=== PATIENT | female | born 2005 | race Caucasian/White ===

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

== ENCOUNTER 2023-04-01 18:33 | Emergency (ER) | payer OTHER, SELFPAY ==
--- NOTE | ~2023-04-01 | CT_ITS ---
EXAMINATION: CT abdomen pelvis wo con DATE: 04/01/2023 19:35 INDICATION: Constipation. Abdominal pain TECHNIQUE: Computed tomography (CT) of the abdomen and pelvis was performed without intravenous contr ast. The dose-length product was 257.51 mGy-cm. Automated exposure control and iterative reconstructi on technique were employed. COMPARISON: CT dated 11/26/2021. FINDINGS: Lung bases are unremarkable. Heart size normal. No significant pleural or pericardial effus ion. The liver, spleen, pancreas, adrenal glands and right kidney are unremarkable. There are punctat e 2 mm nonobstructing left renal stones. No ureteral stones or hydronephrosis. Moderate colonic fecal loading. No obstruction. No free air or free fluid. No significant vascular abnormality. Gallbladder is present. No acute osseous abnormality. IMPRESSION: 1. No acute abdominal abnormality. 2: Nonobstructing left nephrolithiasis. Reviewed, dictated and finalized at location A.
[2023-04-01 18:41] VITALS: BP 122/77; PULSE 101; RESP 16; TEMP 36.5; O2SAT 100
[2023-04-01 18:56] LABS: Basophils Absolute Auto 0.06 K/mm3 (0.00-0.10); Eosinophils Absolute Auto 0.12 K/mm3 (0.02-0.50); Hematocrit 38.6 % (35.0-49.0); Immature Granulocyte Absolute 0.01 K/mm3 (0.00-0.00); Immature Granulocyte Percent A 0.2 % (0.0-0.0); Lymphocytes Absolute Auto 1.84 K/mm3 (1.10-4.50); Lymphocytes Percent Auto 31.4 % (18.0-42.0); Mean Corpuscular HGB Conc 33.7 g/dL (32.0-36.0); Mean Corpuscular Volume 88.9 fL (78.0-102.0); Mean Platelet Volume 9.4 fl (9.2-11.8); Monocytes Absolute Auto 0.42 K/mm3 (0.10-0.90); Monocytes Percent Auto 7.2 % (2.0-11.0); Neutrophils Absolute Auto 3.4 K/mm3 (1.7-7.2); Neutrophils Percent Auto 58.2 % (50.0-70.0); Platelet Count Result 232 K/mm3 (150-420); Red Blood Count 4.34 M/mm3 (4.20-5.40); Red Cell Distribution Width 12.4 % (11.6-14.4); White Blood Count 5.9 K/mm3 (4.8-10.8)
--- NOTE | 2023-04-01 18:56 | PC.NURSE ---
On 04/01/23, the student, [von crow ], provided care and completed [facility] documentation on this patient. I have reviewed the student's documentation and agree with the findings.
[2023-04-01] MEDS: SODIUM CHLORIDE 0.9% IV 1,000 ML 999 ML IV CONT (19:05)
[2023-04-01 19:12] LABS: Alanine Aminotransferase 20 U/L (14-59); Albumin Level 3.9 g/dL (3.4-5.0); Alkaline Phosphatase 59 U/L (50-130); Anion Gap 10 mmol/L (8-16); Aspartate Amino Transferase < 10 U/L (15-37); Bilirubin,Total 0.4 mg/dL (0.00-1.00); Blood Urea Nitrogen 11 mg/dL (7-18); Calcium 9.1 mg/dL (8.5-10.1); Carbon Dioxide 25 mmol/L (21-32); Chloride 103 mmol/L (98-108); Estimated CRCL calculation 114 ml/min; Estimated Glomerular Filt Rate > 60; Glucose 105 mg/dL (70-99); Lipase 39 U/L (16-77); Osmolality Calculated 285 mOsm/kg (285-295); Potassium 3.7 mmol/L (3.5-5.1); Sodium 138 mmol/L (136-145); Total Protein 6.8 g/dL (6.4-8.2)
[2023-04-01 19:24] LABS: Pregnancy On Board Control Positive; Urine Pregnancy Test Negative
--- NOTE | 2023-04-01 19:59 | ED.ABDPAIN ---
HPI - Abdominal Pain General Chief Complaint: Abdominal Pain Stated Complaint: constipation Time Seen by Provider: 04/01/23 18:35 Source: patient and family Mode of arrival: ambulatory Limitations: no limitations History of Present Illness HPI narrative: this is a 17-year-old female who presents with some crampy abdominal pain has history of constipation and has had numerous workups with her primary and with the GI for chronic constipation, has had episodes of constipation where she had obstruction and was hospitalized in the past. Currently has been having constipation for the last month has tried numerous preparations including Linzess, magnesium citrate which she has at home. Currently no nausea or vomiting no diarrhea, there is no chest pain no shortness of breath no fever chills. MD elicited complaint: abdominal pain Pertinent past history: constipation Onset (ago): month(s) Pain Consistency: intermittent Location: diffuse Severity: moderate Quality: aching Radiation: none Migration to: no migration Exacerbating factors: eating Relieving factors: nothing Related Data Home Medications Medication Instructions Recorded Confirmed No Home Medications 05/06/22 04/01/23 Allergies Allergy/AdvReac Type Severity Reaction Status Date / Time No Known Allergies Allergy Verified 04/01/23 18:53 Review of Systems Review of Systems: All systems reviewed & are unremarkable except as noted in HPI and below PMFSH Past Medical History Medical History Chronic constipation Exam Const: General: healthy appearing Nutritional Appearance: well nourished Orientation/consciousness: patient oriented x3 Limitations: no limitations Neck: Neck: normal visual inspection, no lymphadenopathy and no meningeal signs Chest: Chest palpation & inspection: normal inspection of the chest Resp: Effort & Inspection: normal respiratory effort Auscultation: clear to auscultation bilaterally Cardio: Rate: regular rate Rhythm: regular rhythm GI: GI Palp: Yes Soft to palpation and Yes Tenderness to palpation present (GI) Auscultation: normal bowel sounds : General: Yes bladder normal to palpation Skin: General skin exam: normal color Rashes: no rashes Wounds: no wounds Neuro: General: patient oriented x3 and moves all extremities Extrem: General: normal to inspection and no clubbing, cyanosis or edema Psych: Mental Status: mental status grossly normal Course Course Emergency Course: patient received IV fluids, labs performed and reviewed and no significant abnormalities, patient had a CT scan performed which showed moderate fecal loading, advised to take her current med preparations for constipation and to follow up with her primary for possible GI referral. Vital Signs Vital signs: Vital Signs Temperature 36.5 C 04/01/23 18:41 Pulse Rate 101 H 04/01/23 18:41 Respiratory Rate 16 04/01/23 18:41 Blood Pressure 122/77 04/01/23 18:41 Pulse Oximetry 100 04/01/23 18:41 Oxygen Delivery Room Air 04/01/23 18:41 Temperature 36.5 C 04/01/23 18:41 Pulse Rate 101 H 04/01/23 18:41 Respiratory Rate 16 04/01/23 18:41 Blood Pressure 122/77 04/01/23 18:41 Pulse Oximetry 100 04/01/23 18:41 Oxygen Delivery Room Air 04/01/23 18:41 MDM - Abdominal Pain Lab Data 04/01/23 18:53 04/01/23 18:53 Labs: Lab Results 04/01/23 04/01/23 Range/Units 18:36 18:53 WBC 5.9 (4.8-10.8) K/mm3 RBC 4.34 (4.20-5.40) M/mm3 Hgb 13.0 (12.0-15.0) g/dL Hct 38.6 (35.0-49.0) % MCV 88.9 (78.0-102.0) fL MCH 30.0 (27.0-31.0) pg MCHC 33.7 (32.0-36.0) g/dL RDW 12.4 (11.6-14.4) % Plt Count 232 (150-420) K/mm3 MPV 9.4 (9.2-11.8) fl Immature Gran % (Auto) 0.2 H (0.0-0.0) % Neut % (Auto) 58.2 (50.0-70.0) % Lymph % (Auto) 31.4 (18.0-42.0) % [place] % (Auto) 7.2 (2.0-11.0) %
[2023-04-01 20:34] VITALS: BP 126/78; PULSE 92; RESP 16; O2SAT 98
== END 2023-04-01 20:33 | disposition home or self-care (01) ==
PROVIDERS: Emergency Provider Emergency Medicine; PCP Internal Medicine
DX: K59.01 Slow transit constipation (principal)
CPT/HCPCS: 36415; 74176; 80053; 81025; 83690; 85025; 96360; 99284; J7030

== ENCOUNTER 2023-04-19 12:30 | Outpatient (RCR) | payer OTHER, SELFPAY ==
--- NOTE | 2023-02-24 11:07 | OPREHPOC ---
Outpatient Therapy Plan of Care This is a Multidisciplinary Plan of Care that may contain components documented by all disciplines (PT, OT, and ST.) PT Problem 1 PT Problem #1 Knowledge Deficit PT Goal 1 Goal 1. Patient will perform independent HEP Target Visit 5 PT Problem 2 PT Problem #2 Pain PT Goal 1 Goal 1. Patient will report abdominal pain no higher than 4/10 2. No pain with pelvic exam Target Visit 5 PT Problem 3 PT Problem #3 Impaired Functional ADLs PT Goal 1 Goal 1. Patient will report no limitation with work or ADL's due to pain 2. Patient will increase frequency of BM to at least 3 per week Target Visit 5
--- NOTE | 2023-02-24 11:07 | PTOPEVAL1 ---
Assessment and note entered by Corinna Paiz DPT Evaluation Information Assessment Status Evaluation Subjective Information Pt reports difficulty having a BM without taking a lot of laxatives . BM 2 times a month. Had some constipation for awhile but worsened a few years ago. Was hospitalized about a year ago for ulcers and I was really close to a bowel obstruction . Urinates 10 times a day, 1-2 times at night. Denies pain with urination. Can hold urge 10-15 minutes. Denies urine leakage. BM are painful, mostly abdominal pain. Highest pain 6-7/10 and lowest 0/10. Pain with intercourse some of the time. Pt has never been . Has been diagnosed with IBS. Reports no other [employer] issues but did not start menstrual cycles until 16 from malnutrition . Patient goal: increase frequency of BM. Difficulty standing up straight when she has pain, has missed work for pain at times. Also may have difficulty cooking and cleaning if she is having pain as well. Diet: coffee every morning which does not increase frequency of stool, water the rest of the day. Eats breakfast in the morning, sometimes skips lunch and then eats dinner. Does not snack throughout the day. Does not eat meat. Unsure how much fiber she eats a day. Returns to [place] in March. Reported Pain Level Pain Score 0: Self Report Assessment PT Clinical Summary The patient is presenting to skilled therapy with a history of abdominal pain and significant constipation as well as pelvic pain. She presents with increased pelvic floor muscle tone and pain with palpation which are contributing to her pain and difficulty with BM and doing other activities including working. She will benefit from skilled therapy to address her pain and constipation in order to perform all normal activities without limitation. Plan of Care Interventions Manual Therapy,Neuro Re-education,Patient/ Caregiver Education,Therapeutic Activities, Therapeutic Exercise PT Services Indicated Yes Treatment Frequency and 1 time a week for 4 visits Duration
--- NOTE | 2023-03-15 14:25 | PCPTNOTE ---
Patient called to cancel appointment on 03/15/23.
--- NOTE | 2023-03-22 15:17 | OPREHPOC ---
Outpatient Therapy Plan of Care This is a Multidisciplinary Plan of Care that may contain components documented by all disciplines (PT, OT, and ST.) PT Problem 1 PT Problem #1 Knowledge Deficit PT Goal 1 Goal 1. Patient will perform independent HEP Target Visit 5 Progress Partially Met PT Problem 2 PT Problem #2 Pain PT Goal 1 Goal 1. Patient will report abdominal pain no higher than 4/10 2. No pain with pelvic exam Target Visit 5 Progress Not Met PT Problem 3 PT Problem #3 Impaired Functional ADLs PT Goal 1 Goal 1. Patient will report no limitation with work or ADL's due to pain 2. Patient will increase frequency of BM to at least 3 per week Target Visit 5 Progress Not Met
--- NOTE | 2023-03-22 15:18 | PTOPPROG ---
Assessment and note entered by Corinna Paiz DPT Evaluation Information Assessment Status Progress Subjective Information Highest pain recently 7/10 and lowest 0/10. Still going up to 3 weeks in between BM and having to take laxatives. Does feel that bowel massage helps her at least feel like my stomach is moving . Assessment PT Clinical Summary The patient has made minimal progress in the last month. She reports continued constipation up to 3 weeks in between BM and demonstrates continued pain with pelvic exam and increased (but improved) pelvic floor muscle tone. Due her progress and the chronic and severe nature of her symptoms, plan to continue therapy to decrease pain and constipation. Plan of Care Interventions Electrical Stimulation,Hot Pack/Cold Pack,Manual Therapy,Neuro Re-education,Patient/Caregiver Education,Therapeutic Activities,Therapeutic Exercise PT Services Indicated Yes Treatment Frequency and 1 time a week for 4 weeks Duration These treatments will address the objective and functional deficits as defined above. The patient will be advanced safely and appropriately in order for the patient to progress towards his/her prior level of function. Additional exercises will be introduced and as well as a comprehensive home exercise program upon discharge, if needed, ?to ensure carryover of functional gains achieved in the clinic. This treatment plan has been reviewed and agreement upon by the patient.
--- NOTE | 2023-04-05 13:37 | PCPTNOTE ---
Patient called to cancel appointment on 04/05/23.
--- NOTE | 2023-04-12 12:57 | PCPTNOTE ---
Patient called to cancel appointment on 04/12/23- has an appointment with gastro on Wednesday and will call back if she is to continue therapy.
--- NOTE | 2023-04-19 13:03 | OPREHPOC ---
Outpatient Therapy Plan of Care This is a Multidisciplinary Plan of Care that may contain components documented by all disciplines (PT, OT, and ST.) PT Problem 1 PT Problem #1 Knowledge Deficit PT Goal 1 Goal 1. Patient will perform independent HEP Target Visit 5 Progress Met PT Problem 2 PT Problem #2 Pain PT Goal 1 Goal 1. Patient will report abdominal pain no higher than 4/10 2. No pain with pelvic exam Target Visit 5 Progress Partially Met Comment 1. no change 2. met PT Problem 3 PT Problem #3 Impaired Functional ADLs PT Goal 1 Goal 1. Patient will report no limitation with work or ADL's due to pain 2. Patient will increase frequency of BM to at least 3 per week Target Visit 5 Progress Not Met
--- NOTE | 2023-04-19 13:03 | PTOPDC ---
Assessment and note entered by Corinna Paiz DPT Evaluation Information Assessment Status Discharge Subjective Information Pt reports she has had to cancel her last 2 appointments due to inability to have a BM and significant pain. Went to ER due to pain and was given meds to have a BM. Saw referring MD a few days ago. Will be getting a referral to see a surgeon but is not scheduled yet. Highest abdominal pain 8/10 and lowest 0/10. Highest pelvic pain with intercourse 1-2/10 and lowest 0/ 10. Does not feel therapy has helped so far with constipation but maybe some improvements with pelvic pain. Reported Pain Level Pain Score 0: Self Report Assessment PT Clinical Summary The patient has made limited progress in therapy so far. She reports decreased pelvic pain/pain with intercourse and reports no pain with pelvic floor palpation. She has still had significant abdominal pain and has gone extensive amounts of time between BM requiring an ER visit recently. Due to her continued pain and constipation, plan to hold therapy at this time to allow patient to follow up with a surgeon. She has been educated to continue monitoring overall water and fiber intake, using colon massage, and toileting techniques. May resume therapy as needed after following up with the new physician. Plan of Care PT Services Indicated No
== END 2023-04-19 13:51 | disposition home or self-care (01) ==
LOC: ANHGOSHPT 12:30
PROVIDERS: PCP Internal Medicine
DX: R10.9 Unspecified abdominal pain (principal)
CPT/HCPCS: 97014; 97110; 97140; 97162; 97530; G0283

== ENCOUNTER 2023-06-12 13:10 | Emergency (ER) | payer OTHER, SELFPAY ==
--- NOTE | ~2023-06-12 | CT_ITS ---
CT of the Abdomen and Pelvis: Indication: Abdominal pain Technique: 2.5 mm axial scans were obtained through the abdomen and pelvis following intravenous adm inistration of 100 cc of Omnipaque 350. Dose reduction technique was used on this scan by utilizing a utomated exposure control and iterative reconstruction technique. The dose-length product (DLP) was 2 87.72 mGy-cm. COMPARISON: 04/01/2023 Findings: Scans through the lung bases are unremarkable. The liver, spleen, pancreas, gallbladder, adrenals and right kidney are within normal limits. Punctat e nonobstructing left renal stone noted. No evidence of aortic aneurysm. No lymphadenopathy. No bowel obstruction or bowel wall thickening. There is no evidence to suggest acute appendicitis. Images through the pelvis were performed. Urinary bladder unremarkable. No adnexal mass seen. Trace p elvic free fluid noted. Impression: Punctate nonobstructing left renal stone. Trace pelvic free fluid, nonspecific. 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 Trace pelvic free fluid, nonspecific.
[2023-06-12 13:10] VITALS: BP 117/80; PULSE 92; RESP 15; TEMP 36.2; O2SAT 100
[2023-06-12 13:28] LABS: Pregnancy On Board Control Positive; Urine Pregnancy Test Negative
[2023-06-12] MEDS: ONDANSETRON INJ 4 MG/2 ML VIAL IV PUSH (13:35)
[2023-06-12 13:55] LABS: Alanine Aminotransferase 25 U/L (14-59); Albumin Level 4.1 g/dL (3.4-5.0); Alkaline Phosphatase 55 U/L (50-130); Anion Gap 9 mmol/L (8-16); Aspartate Amino Transferase 12 U/L (15-37); Bilirubin,Total 0.7 mg/dL (0.00-1.00); Blood Urea Nitrogen 9 mg/dL (7-18); Calcium 8.7 mg/dL (8.5-10.1); Carbon Dioxide 26 mmol/L (21-32); Chloride 102 mmol/L (98-108); Estimated CRCL calculation 104 ml/min; Estimated Glomerular Filt Rate > 60; Glucose 98 mg/dL (70-99); Osmolality Calculated 282 mOsm/kg (285-295); Sodium 137 mmol/L (136-145); Total Protein 6.6 g/dL (6.4-8.2)
--- NOTE | 2023-06-12 14:48 | ED.ABDPAIN ---
HPI - Abdominal Pain General Chief Complaint: Abdominal Pain Stated Complaint: abdominal pain Time Seen by Provider: 06/12/23 13:21 Source: patient Mode of arrival: ambulatory Limitations: no limitations History of Present Illness HPI narrative: this is a 17-year-old female with a history of slow transit through her bowels and was told by her surgeon to hold her medication for constipation, called her surgeon today and stating that she has been having some abdominal pain with some nausea with no distention of her abdomen no fever chills no chest pain no shortness of breath. MD elicited complaint: abdominal pain Pertinent past history: constipation Onset (ago): day(s) Severity: mild Quality: aching Related Data Home Medications Medication Instructions Recorded Confirmed ondansetron HCl 4 mg tablet 4 mg PO TID PRN Nausea 06/12/23 06/12/23 Allergies Allergy/AdvReac Type Severity Reaction Status Date / Time No Known Allergies Allergy Verified 06/12/23 13:15 Review of Systems Review of Systems: All systems reviewed & are unremarkable except as noted in HPI and below PMFSH Past Medical History Medical History Chronic constipation Exam Const: General: healthy appearing Nutritional Appearance: well nourished Orientation/consciousness: patient oriented x3 Limitations: no limitations Resp: Effort & Inspection: normal respiratory effort Auscultation: clear to auscultation bilaterally Cardio: Rate: regular rate Rhythm: regular rhythm GI: GI Palp: Yes Soft to palpation and Yes Tenderness to palpation present (GI) Auscultation: normal bowel sounds : General: Yes bladder normal to palpation Back/Spine/Pelvis: Back: no CVA tenderness Skin: General skin exam: normal color Course Course Emergency Course: Patient received a CT scan with contrast which shows no acute obstruction no perforations. Patient had IV in place and was given IV Zofran for nausea. Vital Signs Vital signs: Vital Signs Temperature 36.2 C L 06/12/23 13:10 Pulse Rate 92 06/12/23 13:10 Respiratory Rate 15 06/12/23 13:10 Blood Pressure 117/80 06/12/23 13:10 Pulse Oximetry 100 06/12/23 13:10 Oxygen Delivery Room Air 06/12/23 13:10 Temperature 36.2 C L 06/12/23 13:10 Pulse Rate 92 06/12/23 13:10 Respiratory Rate 15 06/12/23 13:10 Blood Pressure 117/80 06/12/23 13:10 Pulse Oximetry 100 06/12/23 13:10 Oxygen Delivery Room Air 06/12/23 13:10 MDM - Abdominal Pain Lab Data 06/12/23 13:35 Labs: Lab Results 06/12/23 06/12/23 Range/Units 13:21 13:35 Sodium 137 (136-145) mmol/L Potassium 4.0 (3.5-5.1) mmol/L Chloride 102 (98-108) mmol/L Carbon Dioxide 26 (21-32) mmol/L Anion Gap 9 (8-16) mmol/L BUN 9 (7-18) mg/dL Creatinine 0.83 (0.55-1.02) mg/dL Estim Creat Clear Calc 104 ml/min Estimated GFR > 60 (59 - ) Glucose 98 (70-99) mg/dL Calculated Osmolality 282 L (285-295) mOsm/kg Calcium 8.7 (8.5-10.1) mg/dL Total Bilirubin 0.7 (0.00-1.00) mg/dL AST 12 L (15-37) U/L ALT 25 (14-59) U/L Alkaline Phosphatase 55 (50-130) U/L Total Protein 6.6 (6.4-8.2) g/dL Albumin 4.1 (3.4-5.0) g/dL Urine Test Negative Imaging Data Radiologist's impression: ITS Impressions Abdomen/Pelvis CT 06/12/23 14:26 Impression: Punctate nonobstructing left renal stone. Trace pelvic free fluid, nonspecific. Critical Care Time Critical Care Time Critical Care Time: No Discharge Plan Discharge Clinical Impression: Chronic constipation Patient Disposition: Home, Self-Care Condition: Stable Instructions: Antibiotic Form, Constipation (ED) Additional Instructions: take medicine as prescribed and follow-up with surgeon as scheduled. Prescriptions: New ondansetron 4 mg tablet,disintegrating 4 mg PO Q6
[2023-06-12 15:00] VITALS: BP 115/75; PULSE 75; RESP 14; TEMP 37.4; O2SAT 100
== END 2023-06-12 15:03 | disposition home or self-care (01) ==
PROVIDERS: Emergency Provider Emergency Medicine; PCP Internal Medicine
DX: K59.09 Other constipation (principal)
CPT/HCPCS: 36415; 74177; 80053; 81025; 96374; 99284; J2405; Q9967

== ENCOUNTER 2023-10-22 11:24 | Outpatient (CLI) | payer OTHER, SELFPAY ==
[2023-10-22 11:58] LABS: Basophils Absolute Auto 0.05 K/mm3 (0.00-0.10); Basophils Percent Auto 1.1 % (0.0-1.0); Eosinophils Absolute Auto 0.09 K/mm3 (0.02-0.50); Eosinophils Percent Auto 2.1 % (1.0-6.0); Hematocrit 41.4 % (35.0-49.0); Hemoglobin 13.7 g/dL (12.0-15.0); Immature Granulocyte Absolute 0.01 K/mm3 (0.00-0.00); Immature Granulocyte Percent A 0.2 % (0.0-0.0); Lymphocytes Absolute Auto 1.15 K/mm3 (1.10-4.50); Lymphocytes Percent Auto 26.4 % (18.0-42.0); Mean Corpuscular HGB Conc 33.1 g/dL (32-36); Mean Corpuscular Hemoglobin 30.1 pg (27.0-31.0); Mean Platelet Volume 9.2 fl (9.2-11.8); Monocytes Absolute Auto 0.25 K/mm3 (0.10-0.90); Monocytes Percent Auto 5.7 % (2.0-11.0); Neutrophils Percent Auto 64.5 % (50.0-70.0); Platelet Count Result 197 K/mm3 (150-420); Red Blood Count 4.55 M/mm3 (4.20-5.40); Red Cell Distribution Width 12.5 % (11.6-14.4); White Blood Count 4.4 K/mm3 (4.8-10.8)
[2023-10-22 12:03] LABS: Appearance Urine Clear (Clear); Bilirubin Urine Negative (Negative); Blood Urine Negative (Negative); Color Urine Light Yellow (Yellow); Glucose Urine UA Negative (Negative); Ketones Urine Negative (Negative); Leukocyte Esterase Ur Negative LEU/UL (Negative); Nitrate Urine Negative (Negative); Protein Urine Negative (Negative); Urobilinogen Urine 0.2 mg/dL (0.2-1.0); pH Urine 6.5 (5.0-8.0)
[2023-10-22 12:11] LABS: Add Urine Microscopic? NO
[2023-10-22 12:42] LABS: Alanine Aminotransferase 20 U/L (14-59); Albumin Level 4.1 g/dL (3.4-5.0); Alkaline Phosphatase 55 U/L (46-116); Anion Gap 6 mmol/L (4-12); Aspartate Amino Transferase 12 U/L (15-37); Bilirubin,Total 0.7 mg/dL (0.00-1.00); Blood Urea Nitrogen 7 mg/dL (7-18); Calcium 9.2 mg/dL (8.5-10.1); Carbon Dioxide 29 mmol/L (21-32); Chloride 104 mmol/L (98-108); Estimated Glomerular Filt Rate > 60; Ferritin 32 ng/mL (8-252); Glucose 82 mg/dL (70-99); Iron 91 ug/dL (50-170); Osmolality Calculated 285 mOsm/kg (285-295); Percent Iron Saturation 28 % (12-57); Potassium 4.3 mmol/L (3.5-5.1); Sodium 139 mmol/L (136-145); Thyroid Stimulating Hormone 0.86 uIU/mL (0.36-3.74); Total Protein 6.9 g/dL (6.4-8.2); Vitamin B12 1092 pg/mL (193-986)
[2023-10-24 06:03] LABS: Vitamin D 25 Hydroxy 30 ng/mL (30-100)
== END 2023-10-22 11:25 | disposition home or self-care (01) ==
PROVIDERS: PCP Internal Medicine; Visit Provider Internal Medicine
DX: Z00.01 Encounter for general adult medical examination with abnormal findings (principal); D50.9 Iron deficiency anemia, unspecified; N39.0 Urinary tract infection, site not specified; E55.9 Vitamin D deficiency, unspecified
CPT/HCPCS: 36415; 80053; 81003; 82306; 82607; 82728; 83540; 83550; 84443; 85025

== ENCOUNTER 2024-02-21 12:49 | Emergency (ER) | payer OTHER, SELFPAY ==
--- NOTE | ~2024-02-21 | CT_ITS ---
CT of the Abdomen and Pelvis: Indication: Abdominal pain Technique: 2.5 mm axial scans were obtained through the abdomen and pelvis following intravenous adm inistration of 100 cc of Omnipaque 350. Dose reduction technique was used on this scan by utilizing a utomated exposure control and iterative reconstruction technique. The dose-length product (DLP) was 2 56.57 mGy-cm. COMPARISON: 06/12/2023 Findings: Scans through the lung bases are unremarkable. The liver, spleen, pancreas, gallbladder, adrenals and right kidney are within normal limits. 3 mm no nobstructing left renal stone present. No evidence of aortic aneurysm. No lymphadenopathy. Question mild wall thickening of multiple small bowel loops and possibly large bowel. Possible mild e ngorgement of the vasa recta. No bowel obstruction evident. Images through the pelvis were performed. Urinary bladder unremarkable. No adnexal mass seen. Small a mount of pelvic ascites present. Impression: Questionable nonspecific enterocolitis. 3 mm nonobstructing left renal stone. Reviewed, dictated and finalized at [facility]. Impression: Questionable nonspecific enterocolitis. 3 mm nonobstructing left renal stone.
[2024-02-21 12:58] VITALS: BP 107/79; PULSE 59; RESP 18; TEMP 36.6; O2SAT 97
--- NOTE | 2024-02-21 13:08 | ED.GENADULT ---
HPI - General Adult General Chief complaint: Nausea/Vomiting/Diarrhea Stated complaint: ilestomy problems Source: patient Mode of arrival: ambulatory Limitations: no limitations History of Present Illness HPI narrative: patient drove herself to the emergency room complaining of general weakness, tiredness , nausea and frequent emptying her ileostomy bag up to 10 times a day instead of 3 times a day over the last few days. Patient report that the stool in the bag is liquidy and bile like. Patient had similar symptoms 1 month ago , went to [facility] and discharged on Bentyl and Compazine. Patient reported some liquid coming out of the anus maximum twice over the last 24 hours which never happened before. 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 Related Data Home Medications Medication Instructions Recorded Confirmed dicyclomine 20 mg tablet 20 mg PO BID 02/21/24 02/21/24 prochlorperazine maleate 10 mg 10 mg PO BID 02/21/24 02/21/24 tablet (Compazine) Allergies Allergy/AdvReac Type Severity Reaction Status Date / Time No Known Allergies Allergy Verified 06/12/23 13:15 Review of Systems Review of Systems: All systems reviewed & are unremarkable except as noted in HPI and below PMFSH Past Medical History Medical History Chronic constipation Exam Narrative: General appearance: Well-developed, well-nourished Skin: Normal color Head: Normocephalic, nontraumatic Eyes: Clear conjunctiva ENT: Oropharynx normal, ears normal, nose normal Neck: Supple, nontender Chest and respiratory: Airway patent, no respiratory distress, no accessory muscle use Heart: Regular rate/rhythm Abdomen: Soft, slight tenderness around the ileostomy bag, no organomegaly, quiet bowel sounds Vascular: Normal peripheral pulses, normal capillary refill. 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, no gross motor deficit Course Vital Signs Vital signs: Vital Signs Temperature 36.6 C 02/21/24 12:58 Pulse Rate 59 L 02/21/24 12:58 Respiratory Rate 18 02/21/24 12:58 Blood Pressure 107/79 02/21/24 12:58 Pulse Oximetry 97 02/21/24 12:58 Oxygen Delivery Room Air 02/21/24 12:58 Temperature 36.6 C 02/21/24 12:58 Pulse Rate 59 L 02/21/24 12:58 Respiratory Rate 18 02/21/24 12:58 Blood Pressure 107/79 02/21/24 12:58 Pulse Oximetry 97 02/21/24 12:58 Oxygen Delivery Room Air 02/21/24 12:58 Medical Decision Making MDM Narrative Medical decision making narrative: patient presents with frequent emitting the ileostomy bag, weakness, headache, nausea Vital signs are stable Physical exam showed slight tenderness around the ileostomy bag, liquid yellowish stool in the bag Differential diagnosis include dehydration, electrolyte imbalance, diarrhea, ileitis or colitis Blood workup today showed no acute abnormalities CT abdomen and pelvis with IV contrast showed possible enterocolitis Patient received 1 L of normal saline IV, 4 mg Zofran IV with significant improvement. Patient surgeon at [facility]/Dr. Magallanes was notified through his nurse, did not call back, 1 hour later his office was closed, we have no access to him at this time. Patient was advised to call him in the morning for possible further management. the pt was discharged to home.the pt,s condition upon discharge was fair,education was provided to the pt in reference to the final impression,discharge study results,treatment,prognosis and need for follow up . Differential Diagnosis Differe
[2024-02-21 13:23] LABS: Pregnancy On Board Control Positive; Urine Pregnancy Test Negative
[2024-02-21 13:28] LABS: Hematocrit 43.4 % (35.0-49.0); Hemoglobin 14.6 g/dL (12.0-15.0); Mean Corpuscular HGB Conc 33.6 g/dL (32-36); Mean Corpuscular Volume 89.1 fL (78.0-102.0); Platelet Count Result 213 K/mm3 (150-420); Red Blood Count 4.87 M/mm3 (4.20-5.40); Red Cell Distribution Width 12.2 % (11.6-14.4); White Blood Count 5.6 K/mm3 (4.8-10.8)
[2024-02-21 13:29] LABS: Basophils Absolute Auto 0.06 K/mm3 (0.00-0.10); Basophils Percent Auto 1.1 % (0.0-1.0); Eosinophils Absolute Auto 0.32 K/mm3 (0.02-0.50); Eosinophils Percent Auto 5.7 % (1.0-6.0); Immature Granulocyte Absolute 0.03 K/mm3 (0.00-0.00); Immature Granulocyte Percent A 0.5 % (0.0-0.0); Lymphocytes Percent Auto 19.7 % (18.0-42.0); Mean Platelet Volume 9.1 fl (9.2-11.8); Monocytes Percent Auto 5.4 % (2.0-11.0); Neutrophils Absolute Auto 3.78 K/mm3 (1.70-7.20); Neutrophils Percent Auto 67.6 % (50.0-70.0)
[2024-02-21] MEDS: SODIUM CHLORIDE 0.9% IV 1,000 ML 999 ML IV CONT (13:31)
[2024-02-21] MEDS: ONDANSETRON INJ 4 MG/2 ML VIAL IV PUSH (13:31)
[2024-02-21 13:44] LABS: Alanine Aminotransferase 20 U/L (14-59); Alkaline Phosphatase 64 U/L (46-116); Anion Gap 10 mmol/L (4-12); Aspartate Amino Transferase 11 U/L (15-37); Bilirubin,Total 0.7 mg/dL (0.00-1.00); Blood Urea Nitrogen 5 mg/dL (7-18); Calcium 9.1 mg/dL (8.5-10.1); Carbon Dioxide 27 mmol/L (21-32); Chloride 102 mmol/L (98-108); Estimated CRCL calculation 85 ml/min; Estimated Glomerular Filt Rate > 60; Glucose 91 mg/dL (70-99); Lipase 31 U/L (16-77); Osmolality Calculated 285 mOsm/kg (285-295); Potassium 3.9 mmol/L (3.5-5.1); Sodium 139 mmol/L (136-145); Total Protein 7.2 g/dL (6.4-8.2)
[2024-02-21 13:56] LABS: Albumin Level 4.2 g/dL (3.4-5.0)
[2024-02-21 16:47] VITALS: BP 114/81; PULSE 86; RESP 18; TEMP 36.6; O2SAT 100
== END 2024-02-21 16:58 | disposition home or self-care (01) ==
PROVIDERS: Emergency Provider Emergency Medicine; PCP Internal Medicine
DX: K52.9 Noninfective gastroenteritis and colitis, unspecified (principal)
CPT/HCPCS: 36415; 74177; 80053; 81025; 83690; 85025; 96361; 96374; 99284; J2405; J7030; Q9967

== ENCOUNTER 2024-10-14 20:13 | Emergency (ER) | payer OTHER, SELFPAY ==
--- NOTE | ~2024-10-14 | CT_ITS ---
CT of the Abdomen and Pelvis: Indication: Abdominal pain Technique: 2.5 mm axial scans were obtained through the abdomen and pelvis following intravenous adm inistration of 100 cc of Omnipaque 350. Dose reduction technique was used on this scan by utilizing a utomated exposure control and iterative reconstruction technique. The dose-length product (DLP) was 2 72.32 mGy-cm. COMPARISON: 02/21/2024 Findings: Scans through the lung bases are unremarkable. There is periportal edema. Liver is otherwise unremarkable. The spleen, pancreas, gallbladder, adrena ls and right kidney are within normal limits. 2 mm nonobstructing left renal stone present. No eviden ce of aortic aneurysm. No lymphadenopathy. No bowel obstruction or bowel wall thickening. Ostomy present.. Images through the pelvis were performed. Urinary bladder unremarkable. 3 cm ovarian cyst present. Sm all amount of pelvic ascites present, with probable tiny amount of hemorrhagic fluid present. Impression: Small amount of pelvic ascites with minimal hemorrhagic fluid, likely related to ruptured ovarian cys t. 3 cm right ovarian cyst present. 2 mm nonobstructing left renal stone. Periportal edema, nonspecific. Reviewed, dictated and finalized at [facility]. Impression: Small amount of pelvic ascites with minimal hemorrhagic fluid, likely related t o ruptured ovarian cyst. 3 cm right ovarian cyst present. 2 mm nonobstructing left renal stone. Periportal edema, nonspecific.
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
[2024-10-14 20:20] VITALS: BP 123/84; PULSE 90; RESP 20; TEMP 36.6; O2SAT 100
--- NOTE | 2024-10-14 20:35 | ED.ABDPAIN ---
HPI - Abdominal Pain General Chief Complaint: Abdominal Pain Stated Complaint: ABDOMINAL PAIN Time Seen by Provider: 10/14/24 20:23 Source: patient Mode of arrival: ambulatory Limitations: no limitations History of Present Illness HPI narrative: 19 years old white female came to the ED complaining of lower abdominal pain bilaterally started 2 days ago l, patient report vaginal spotting for the last couple days, last menstrual cycle was on the 8th of this month. Patient report pain gets worse with sitting. Possible increased frequency of urination. History of ileostomy over 1 year ago at [facility] secondary to immobility of the colon. Patient denies any fever, chills, nausea, vomiting or change of the amount of stool or the consistency in the ileostomy bag. Related Data Home Medications Medication Instructions Recorded Confirmed Last Taken Type dicyclomine 20 mg tablet 20 mg PO BID 02/21/24 02/21/24 Unknown History prochlorperazine maleate 10 mg 10 mg PO BID 02/21/24 02/21/24 Unknown History tablet (Compazine) Allergies Allergy/AdvReac Type Severity Reaction Status Date / Time No Known Allergies Allergy Verified 06/12/23 13:15 Review of Systems Review of Systems: All systems reviewed & are unremarkable except as noted in HPI and below PMFSH Past Medical History Medical History Chronic constipation Exam Narrative: General appearance: Well-developed, well-nourished Skin: Normal color Head: Normocephalic, nontraumatic Eyes: Clear conjunctiva ENT: Oropharynx normal, ears normal, nose normal Neck: Supple, nontender Chest and respiratory: Airway patent, no respiratory distress, no accessory muscle use Heart: Regular rate/rhythm Abdomen: Severe lower abdominal pain bilaterally, positive guarding,, quite bowel sounds Vascular: Normal peripheral pulses, normal capillary refill. Musculoskeletal: Normal range of motion, nontender back Neurologic: Alert and oriented ×3, BREWERY CELLAR WORKER is normal as tested, no gross motor deficit Course Vital Signs Vital signs: Vital Signs Temperature 36.6 C 10/14/24 20:20 Pulse Rate 90 10/14/24 20:20 Respiratory Rate 20 10/14/24 20:20 Blood Pressure 123/84 10/14/24 20:20 Pulse Oximetry 100 10/14/24 20:20 Oxygen Delivery Room Air 10/14/24 20:20 Temperature 36.6 C 10/14/24 20:20 Pulse Rate 72 10/14/24 21:49 Respiratory Rate 18 10/14/24 21:49 Blood Pressure 121/75 10/14/24 21:49 Pulse Oximetry 99 10/14/24 21:49 Oxygen Delivery Room Air 10/14/24 21:49 MDM - Abdominal Pain MDM Narrative Medical decision making narrative: patient presents with lower abdominal pain Vital signs are stable Physical examination consistent with severe tenderness across the lower abdomen bilaterally Differential diagnosis: ileitis, urinary tract infection, , PID Blood workup today includes CBC, CMP, lipase showed NO SIGNIFICANT ABNORMALITIES Urinalysis showed BLOOD IN THE URINE, PATIENT CURRENTLY SPOTTING CT abdomen and pelvis with IV contrast showed HEMORRHAGIC RIGHT OVARIAN CYST MEASURING 32 MM, FREE PELVIC FLUID WITH LAYERING DENSITY SUGGESTING HEMORRHAGIC FLUID FROM RUPTURED HEMORRHAGIC CYST. NO ACTIVE BLEEDING VISUALIZED. DIAGNOSIS RUPTURED CYST, DISCHARGED HOME, FOLLOW-UP WITH OBGYN. TAKE TYLENOL, IBUPROFEN NEEDED Differential Diagnosis Differential diagnosis: Likely other Lab Data 10/14/24 20:35 10/14/24 20:35 Labs: Lab Results 10/14/24 10/14/24 Range/Units 20:33 20:35 WBC 8.9 (4.8-10.8) K/mm3 RBC 4.38 (4.20-5.40) M/mm3 Hgb 12.9 (12.0-15.0) g/dL Hct 39.2 (35.0-49.0) % MCV 89.5 (78.0-102.0) fL MCH 29.5 (27.0-31.0) pg MCHC 32.9 (32-36) g/dL RDW 12.4 (11.6-14.4) % Plt Count 224 (150-420) K/mm3 MPV 9.2 (9.2-11.8) fl Immature Gran % (Auto) 0.2 H (0.0-0.0) % Neut % (Auto) 71.1 H (50.0-70.0) % Lymph % (Auto) 20.3 (18.0-42.0) % Lares % (Auto) 6.4 (2.0-11.0) % Eos % (Auto) 1.2 (1.0-6.0) % Baso % (Auto) 0.8 (0.0-1.0) % Lymph # (Auto) 1.80 (1.10-4.50) K/mm3 Lares # (Auto) 0.57 (0.10-0.90) K/mm3 Eos # (Auto) 0.11 (0.02-0.50) K/mm3 Baso # (Auto) 0.07 (0.00-0.10) K/mm3 Abs Immat Gran (auto) 0.02 H (0.00-0.00) K/mm3 Absolute Neuts (auto) 6.30 (1.70-7.20) K/mm3 Absolute Nucleated RBC 0.00 (0.00-0.00) K/mm3 Nucleated RBC % 0.0 (0-0.0) % Sodium 138 (137-145) mmol/L Potassium 3.7 (3.4-5.0) mmol/L Chloride 109 H (98-107) mmol/L Carbon Dioxide 22 (22-30) mmol/L Anion Gap 7 (4-12) mmol/L BUN 7 (7-17) mg/dL Creatinine 0.70 (0.7-1.0) mg/dL Estim Creat Clear Calc Not Reportable Estimated GFR > 60 (59 - ) Glucose 87 (65-110) mg/dL Calculated Osmolality 283 L (285-295) mOsm/kg Calcium 8.7 (8.4-10.2) mg/dL Total Bilirubin 0.7 (0.2-1.3) mg/dL AST 21 (14-36) U/L ALT 20 (6-35) U/L Alkaline Phosphatase 57 (38-126) U/L Total Protein 6.8 (6.3-8.2) g/dL Albumin 4.3 (3.5-5.1) g/dL Lipase 114 (23-300) U/L Urine Color Yellow (Yellow) Urine Appearance Cloudy A (Clear) Urine pH 6.0 (5.0-8.0) Ur Specific [place] >= 1.030 H (1.010-1.020) Urine Protein 2+ H (Negative) Urine Glucose (UA) Negative (Negative) Urine Ketones Negative (Negative) Ur Blood (Man) 3+ H (Negative) Urine Nitrate Negative (Negative) Urine Bilirubin Negative (Negative) Urine Urobilinogen 0.2 (0.2-1.0) mg/dL Leukocyte Esterase Rfl Trace H (Negative) ALAN/UL Urine RBC 21-50 H (0-2) /hpf Urine WBC 0-3 (0-3) /hpf Ur Squamous Epith Cells Many H (Few) /hpf Amorphous Sediment Moderate H (None) Urine Bacteria 3+ H (None) /hpf Urine Mucus Heavy H /lpf Urine Test Negative Discharge Plan Discharge Clinical Impression: Rupture of cyst of right ovary Patient Disposition: Home Condition: Stable Instructions: Ruptured Ovarian Cyst (ED) Additional Instructions: RETURN IF SYMPTOMS ARE WORSENING , CALL YOUR FAMILY PHYSICIAN /OBGYN FOR APPOINTMENT, TAKE TYLENOL, IBUPROFEN NEEDED FOR ACHES AND PAIN, CONTINUE HOME MEDICATIONS. Patient Language: Tamazight Prescriptions: No Action prochlorperazine maleate [Compazine] 10 mg tablet 10 mg PO BID dicyclomine 20 mg tablet 20 mg PO BID Follow-up/Referrals: Bob Benavides MD [Physician] - 10/16/24 Jesse,Gamal Link MD [Primary Care Provider] -
[2024-10-14] MEDS: ONDANSETRON INJ 4 MG/2 ML VIAL IV PUSH (20:42)
[2024-10-14] MEDS: SODIUM CHLORIDE 0.9% IV 1,000 ML 999 ML IV CONT (20:45)
[2024-10-14 20:46] LABS: Add Urine Microscopic? YES; Bilirubin Urine Negative (Negative); Blood Urine 3+ (Negative); Color Urine Yellow (Yellow); Glucose Urine UA Negative (Negative); Ketones Urine Negative (Negative); Leukocyte Esterase Ur Trace LEU/UL (Negative); Nitrate Urine Negative (Negative); Protein Urine 2+ (Negative); Specific Grav Ur >= 1.030 (1.010-1.020); Urobilinogen Urine 0.2 mg/dL (0.2-1.0)
[2024-10-14 20:46] LABS: Basophils Absolute Auto 0.07 K/mm3 (0.00-0.10); Basophils Percent Auto 0.8 % (0.0-1.0); Eosinophils Absolute Auto 0.11 K/mm3 (0.02-0.50); Eosinophils Percent Auto 1.2 % (1.0-6.0); Hematocrit 39.2 % (35.0-49.0); Hemoglobin 12.9 g/dL (12.0-15.0); Immature Granulocyte Absolute 0.02 K/mm3 (0.00-0.00); Immature Granulocyte Percent A 0.2 % (0.0-0.0); Lymphocytes Percent Auto 20.3 % (18.0-42.0); Mean Corpuscular HGB Conc 32.9 g/dL (32-36); Mean Corpuscular Hemoglobin 29.5 pg (27.0-31.0); Mean Corpuscular Volume 89.5 fL (78.0-102.0); Mean Platelet Volume 9.2 fl (9.2-11.8); Monocytes Absolute Auto 0.57 K/mm3 (0.10-0.90); Monocytes Percent Auto 6.4 % (2.0-11.0); Neutrophils Percent Auto 71.1 % (50.0-70.0); Platelet Count Result 224 K/mm3 (150-420); Red Blood Count 4.38 M/mm3 (4.20-5.40); Red Cell Distribution Width 12.4 % (11.6-14.4); White Blood Count 8.9 K/mm3 (4.8-10.8)
[2024-10-14 20:56] LABS: Appearance Urine Cloudy (Clear); RBC Urine 21-50 /hpf (0-2); Squamous Epithelial Cell Urine Many /hpf (Few); WBC Urine 0-3 /hpf (0-3)
[2024-10-14 20:57] LABS: Amorphous Sediment Urine Moderate; Bacteria Urine 3+ /hpf; Mucus Urine Heavy /lpf
[2024-10-14 20:58] LABS: Pregnancy On Board Control Positive; Urine Pregnancy Test Negative
[2024-10-14 21:21] LABS: Alanine Aminotransferase 20 U/L (6-35); Albumin Level 4.3 g/dL (3.5-5.1); Alkaline Phosphatase 57 U/L (38-126); Anion Gap 7 mmol/L (4-12); Aspartate Amino Transferase 21 U/L (14-36); Bilirubin,Total 0.7 mg/dL (0.2-1.3); Blood Urea Nitrogen 7 mg/dL (7-17); Calcium 8.7 mg/dL (8.4-10.2); Carbon Dioxide 22 mmol/L (22-30); Chloride 109 mmol/L (98-107); Estimated Glomerular Filt Rate > 60; Glucose 87 mg/dL (65-110); Lipase 114 U/L (23-300); Osmolality Calculated 283 mOsm/kg (285-295); Potassium 3.7 mmol/L (3.4-5.0); Sodium 138 mmol/L (137-145); Total Protein 6.8 g/dL (6.3-8.2)
[2024-10-14 21:49] VITALS: BP 121/75; PULSE 72; RESP 18; O2SAT 99
--- NOTE | 2024-10-14 22:28 | PC.NURSE ---
Pt resting in room, informed and updated on waiting for results of CT scan and that images sent to [facility] to be read. Informed pt on wait time and that it will most likely be hours before results are back. Pt denies any worsening pain, resting on her side and ambulates steadily to BR on her own. Pt given warm blanket, lights dimmed, call balderas at side.
--- NOTE | 2024-10-14 23:45 | PC.NURSE ---
Pt sleeping, resting comfortably, still awaiting CT scan results.
[2024-10-15 00:53] VITALS: BP 119/71; PULSE 70; RESP 20; TEMP 36.6; O2SAT 100
== END 2024-10-15 00:53 | disposition home or self-care (01) ==
PROVIDERS: Emergency Provider Emergency Medicine; PCP Internal Medicine
DX: N83.201 Unspecified ovarian cyst, right side (principal)
CPT/HCPCS: 36415; 74177; 80053; 81001; 81025; 83690; 85025; 96361; 96374; 99284; J2405; J7030; Q9967